=== PATIENT | male | born 1950 | race Two or more races ===

== ENCOUNTER 2021-05-07 13:31 | Emergency (ER) | payer OTHER ==
[~2021-05-07] VITALS: Ht 182.9 cm; Wt 93.4 kg
[2021-05-07] MEDS ORDERED: ACCU-CHEK COMFORT CURVE STRIP VI ONE (13:45)
[2021-05-07 13:58] VITALS: BP 133/88
[2021-05-07 14:41] LABS: Basophils # (auto) 0.1 10 ^3/uL (0-0.2); Basophils % (auto) 0.4 % (0.0-2.0); Eosinophils # (auto) 0.1 10 ^3/uL (0-0.8); Eosinophils % (auto) 0.5 % (0.0-7.0); Hematocrit 29.3 % (41.0-53.0); Hemoglobin 9.2 g/dL (13.5-17.5); Lymphocytes # (auto) 1.7 10 ^3/uL (0.4-5.4); Lymphocytes % (auto) 8.3 % (10.0-50.0); Mean Corpuscular Hemoglobin 27.5 pg (28.0-32.0); Mean Corpuscular Hgb Conc. 31.3 g/dL (32.0-36.0); Mean Corpuscular Volume 87.9 fL (80.0-100.0); Monocytes # (auto) 0.7 10 ^3/uL (0-1.3); Monocytes % (auto) 3.7 % (0.0-12.0); Neutrophils # (auto) 17.4 10 ^3/uL (1.6-8.6); Neutrophils % (auto) 87.1 % (37.0-80.0); Red Blood Cells 3.34 10^6/uL (4.5-5.90); Red Cell Distribution Width 17.7 % (11.8-14.3)
[2021-05-07 14:59] LABS: Lactic Acid w/Reflex 7.5 mmol/L (0.4-2.0)
[2021-05-07 15:19] LABS: Alanine Aminotransferase 82 U/L (16-61); Albumin 2.3 g/dL (3.4-5.0); Anion Gap 10 (5-15); Aspartate Aminotransferase 151 U/L (15-37); BUN/Creatinine Ratio 5.6; Blood Urea Nitrogen 19 mg/dL (7-18); Calcium 7.2 mg/dL (8.5-10.1); Carbon Dioxide 19 mmol/L (21-32); Chloride 108 mmol/L (98-107); GFR African American 23 mL/min; GFR Non-African American 19 mL/min; Glucose 108 mg/dL (74-106); Potassium 4.1 mmol/L (3.5-5.1); Sodium 137 mmol/L (136-145)
[2021-05-07 15:24] LABS: Alkaline Phosphatase 53 U/L (45-117); Bilirubin, Total 0.7 mg/dL (0.2-1.0)
== END 2021-05-07 14:22 | disposition short-term general hospital (02) ==
LOC: ER 13:31 → EDBD 13:31 → ER 14:22
DX: S09.93XA Unspecified injury of face, initial encounter (principal); I46.9 Cardiac arrest, cause unspecified; I10 Essential (primary) hypertension; K21.9 Gastro-esophageal reflux disease without esophagitis; E11.9 Type 2 diabetes mellitus without complications; Z88.8 Allergy status to other drugs, medicaments and biological substances; X58.XXXA Exposure to other specified factors, initial encounter; Y93.89 Activity, other specified; Y92.89 Other specified places as the place of occurrence of the external cause; Y99.8 Other external cause status
CPT/HCPCS: 31500; 36415; 71045; 80053; 83605; 83880; 84484; 85025; 99291